=== PATIENT | female | born 1990 | race Caucasian/White ===

== ENCOUNTER 2017-09-29 06:11 | Inpatient (IN) | payer OTHER ==
[~2017-09-29] VITALS: Ht 170.2 cm; Wt 85.0 kg
[2017-09-29] VITALS (10 sets, daily range): BP systolic 106–119; BP diastolic 55–77; PULSE 77–110; TEMP 98.1–98.3
[~2017-09-29 06:11] MED LIST: CEFTIN500 MG PO; DOXYCYCLINE PO; FLEXERIL10 MG PO; LORTAB; MELATONIN5 M1 PO; METHYLPHENIDATE; NO HOME MEDICATIONS; NORCO 325 MG-51 TAB PO; NUVARING1 ICR VG; PHENERGAN 25 TA25 MG PO; PYRIDIUM200 M1 PO; ULTRAM 50MG TAB50 MG PO; UNISOM
[2017-09-29] MEDS ORDERED: MOTRIN 800800 MG/TAB PO (09:55)
[2017-09-29] MEDS ORDERED: PERCOCET 325 MG1 TA2 PO (09:55)
[2017-09-30 08:00] VITALS: BP 108/56; PULSE 73; TEMP 97.7
== END 2017-09-30 09:50 | disposition home or self-care (01) | DRG 775 ==
LOC: LDRO 06:11 → OB 06:39 → LDR 06:39 → OB 09:45
PROC: 10E0XZZ Delivery of Products of Conception, External Approach (ICD-10-PCS; principal; 2017-09-29)
DX: O69.81X0 Labor and delivery complicated by cord around neck, without compression, not applicable or unspecified (principal); O70.0 First degree perineal laceration during delivery; O26.893 Other specified pregnancy related conditions, third trimester; O99.62 Diseases of the digestive system complicating childbirth; K21.9 Gastro-esophageal reflux disease without esophagitis; G56.00 Carpal tunnel syndrome, unspecified upper limb; O99.344 Other mental disorders complicating childbirth; F41.9 Anxiety disorder, unspecified; Z3A.39 39 weeks gestation of pregnancy; Z37.0 Single live birth
CPT/HCPCS: J2210